=== PATIENT | male | born 1950 | race Caucasian/White ===

== ENCOUNTER 2022-06-05 13:46 | Outpatient (NON) | payer MEDICARE, OTHER, SELFPAY | END 2022-06-05 13:47 | disposition home or self-care (01) | LOC: ANHLAB 13:47 | PROVIDERS: Visit Provider Nurse Practitioner | DX: C44.721 Squamous cell carcinoma of skin of unspecified lower limb, including hip (principal); C44.319 Basal cell carcinoma of skin of other parts of face | CPT/HCPCS: 88305; 88331 ==